=== PATIENT | male | born 1980 | race Caucasian/White ===

== ENCOUNTER 2022-04-04 14:14 | Emergency (ER) | payer OTHER, SELFPAY ==
[2022-04-04 14:17] VITALS: BP 170/112; PULSE 97; RESP 16; TEMP 36.3; O2SAT 97; BMI 25.1
--- NOTE | 2022-04-04 14:46 | ED.GENADULT ---
HPI - General Adult General Date Seen: 04/04/22 Chief complaint: Laceration/Wound Stated complaint: Lac right hand Time Seen by Provider: 04/04/22 14:28 Source: patient Mode of arrival: ambulatory Limitations: no limitations History of Present Illness HPI narrative: Patient is a 42-year-old male who was at work and cut his right index finger on a metal electrical box. Tetanus is up-to-date. He cut through the nail for the most part. No other injuries or complaints. No complaints of numbness or loss of function. Blood pressure is noted to be high here, he says he has run out of his medication and has not had a chance to make an appointment with Dr. Freddy jean. Takes lisinopril 10 mg. Related Data Previous Rx's Medication Instructions Recorded dextroamphetamine-amphetamine ER 20 mg PO QAM #30 caps 12/21/21 20 mg 24hr capsule,extend release (Adderall XR) lisinopril 10 mg tablet 10 mg PO DAILY #30 tabs 04/04/22 Allergies Allergy/AdvReac Type Severity Reaction Status Date / Time No Known Drug Allergies Allergy Verified 04/04/22 14:17 Exam Narrative: Exam Narrative: Vital signs reviewed, blood pressure elevated at 170/112. In general, an alert, well-appearing male. Extremities: Examination of the right hand shows a laceration which extends primarily into the nail, extends laterally past the cuticle by about half a cm. Bleeding is controlled. Distal CMS is normal. Remainder of the hand is atraumatic. Skin: Warm dry, well perfused. Otherwise intact. Const: Vital Signs, click to edit/add: Vital Signs - 24 hr 04/04/22 14:17 Temperature 97.4 F L Pulse Rate [Left P ulse Oximeter] 97 Respiratory Rate 16 Blood Pressure [Le ft Upper Arm] 170/112 H Pulse Oximetry 97 Oxygen Delivery Me thod Room Air Documenting provider has reviewed patient's vital signs: yes Course Course Hospital Course: I discussed options with him of removing the nail entirely and closing the laceration underneath it, applying glue to the nail and suturing just the skin, or applying glue to the entire laceration. He says he really does not like needles and he would like to avoid the midfoot at all possible. Discussed that if we do not repair the nail bed that there will potentially be a little more irregular of a scar there and the nail may grow somewhat irregularly over that spot, he is not concerned about that. Also discussed that it is going to take several months for the nail completely grow out and in the meantime he is going to lose 1 piece of it and then have an onlay shaped nail until the full nail grows out. That also is not a concern to him. Also discussed that glue tends not to stand hands very well, so we glued the portion of the laceration that extends onto the skin, it probably will not stay on for very long. That said, that is a very small laceration and I think if we just give it a couple of days where it is protected and that part of the cut has a chance to stabilize it should heal just fine. Therefore, the wound was cleaned a little bit and then I placed Dermabond over the entire laceration, including the nail and the skin. Then we placed 2 gauze as well as a splint which he leave in place for the next couple of days. Otherwise, routine wound care, return for signs of infection. A couple of days, he can remove the splint and dressing, he can use a Band-Aid for or can continue to keep the splint on it if he feels that that is better protection. In terms of his blood pressure, he understands that it is elevated here. I am going to give him a prescription for his lisinopril so he can get back on his medication, he will follow-up with Dr. Hayes. Vital Signs Vital signs: Initial Vital Signs Temperature 97.4 F L 04/04/22 14:17 Temperature Source Temporal Artery Scan 04/04/22 14:17 Pulse Rate 97 04/04/22 14:17 Pulse Rhythm 04/04/22 14:17 Respiratory Rate 16 04/04/22 14:17 Blood Pressure 170/112 H 04/04/22 14:17 Blood Pressure Mean 131 04/04/22 14:17 Blood Pressure Position Sitting 04/04/22 14:17 Pulse Oximetry 97 04/04/22 14:17 Oxygen Delivery Method 04/04/22 14:17 Vital Signs Temperature 97.4 F L 04/04/22 14:17 Pulse Rate 97 04/04/22 14:17 Respiratory Rate 16 04/04/22 14:17 Blood Pressure 170/112 H 04/04/22 14:17 Pulse Oximetry 97 04/04/22 14:17 Oxygen Delivery Method 04/04/22 14:17 Temperature 97.4 F L 04/04/22 14:17 Pulse Rate 97 04/04/22 14:17 Respiratory Rate 16 04/04/22 14:17 Blood Pressure 170/112 H 04/04/22 14:17 Pulse Oximetry 97 04/04/22 14:17 Oxygen Delivery Method 04/04/22 14:17 Discharge Plan Discharge Clinical Impression: Finger laceration, Hypertension Patient Disposition: Home, Self-Care Condition: Improved Instructions: Finger Laceration (ED), Skin Adhesive Care (ED) Additional Instructions: Routine wound care. It will take several months for your nail to completely grow out back to normal. Return for signs of infection. Skin glue will slough off over several days, it will take longer for it to come off of your nail, but I would recommend leaving it on the nail as long as possible. Prescriptions: New lisinopril 10 mg tablet 10 mg PO DAILY Qty: 30 0RF No Action dextroamphetamine-amphetamine [Adderall XR] 20 mg capsule,extended release 24hr 20 mg PO QAM Qty: 30 0RF Follow Up/Referrals: Urbano Hayes MD [Primary Care Provider] - Stand Alone Forms: [facility] Info Instructions
== END 2022-04-04 14:51 | disposition home or self-care (01) ==
LOC: ED 14:49
PROVIDERS: Emergency Provider Emergency Medicine; PCP Family Medicine
DX: S61.310A Laceration without foreign body of right index finger with damage to nail, initial encounter (principal); W26.8XXA Contact with other sharp object(s), not elsewhere classified, initial encounter; I10 Essential (primary) hypertension
CPT/HCPCS: 99283

== ENCOUNTER 2024-03-30 16:10 | Inpatient (IN) | payer BC, SELFPAY ==
--- OUTSIDE RECORDS SUMMARY | 2024-03-30 16:12 | XMS_ITS | Clinical Summary ---
Author Organization [facility] Address [address] [place] [id number] Care Team Providers Care Shoer Name Role Phone Urbano Hayes MD Primary Care Provider [phone] Allergies Active Allergy Reactions Criticality Noted Date Comments Venom-Honey Bee Edema 08/04/2013 Cats (Fur, Dander, Saliva) Runny Nose 4 Medications multivitamin (MVI) tablet Take 1 tablet by mouth once daily. 0 08/05/19 14 Active EPINEPHrine (EPIPEN) 0.3 mg/0.3 mL (1:1,000) injectionIndicati ons:Allergy to bee sting Inject 0.3 mg intramuscular one time if needed for Allergic Reaction for 1 dose. 1 Each 1 08/05/19 14 Active medical supply, miscellaneous (GRADUATED COMPRESSION STOCKINGS)Indicat ions:Venous insufficiency 20-30 mm/Hg thigh high compression stockings - Venous insufficiency 8 Packet 12/14/19 18 Active lisinopriL (PRINIVIL; ZESTRIL) 10 mg tablet Take 10 mg by mouth once daily. 03/25/19 21 Active Active Problems Problem Noted Date Diagnosed Date Venous insufficiency 12/13/2017 Immunizations Name Administration Dates Next Due Tdap 07/26/2009 Family History Medical History Relation Name Comments Good Health Father Asthma Mother Other Mother Chronic Fatigue Relation Name Status Comments Father Alive Mother Alive Social History Tobacco Use Types Packs/Day Years Used Date Smoking Tobacco: Never Smokeless Tobacco: Never Tobacco Cessation:Counseling Given: Yes Alcohol Use Standard Drinks/Week Comments Yes 0.8 (1 standard drink = 0.6 oz p ure alcohol) minimal Sex and Gender Information Value Date Recorded Sex Assigned at Not on file Legal Sex Male 7:58 AM RESIDENT CARE AIDE Gender Identity Not on file Sexual Orientation Not on file 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 Not on file Not on file Obstetrics History Last Filed Vital Signs Vital Sign Reading Time Taken Comments Blood Pressure 128/85 03/31/2020 9:20 AM RESIDENT CARE AIDE Pulse 69 03/31/2020 9:20 AM RESIDENT CARE AIDE Temperature 36.8 C (98.3 F) 03/01/2018 7:19 AM RESIDENT CARE AIDE Respiratory Rate 16 03/01/2018 9:15 AM RESIDENT CARE AIDE Oxygen Saturation 99% 03/31/2020 9:20 AM RESIDENT CARE AIDE Inhaled Oxygen Concentration - - Weight 128.5 kg (283 lb 3.2 oz) 03/31/2020 9:20 AM RESIDENT CARE AIDE Height 170.2 cm (5' 7) 03/01/2018 7:19 AM RESIDENT CARE AIDE Body Mass Index 44.36 03/01/2018 7:19 AM RESIDENT CARE AIDE Plan of Treatment Health Maintenance Due Date Last Done Comments Depression screening for age 12+ 1992 HIV for age 15-65 01/19/1995 Hepatitis C screening for ag e 18-79 01/19/1998 Lipids for age 35-44 01/19/2015 BMI (ht and wt on same day) for age 18+ 12/13/2018 12/13/2017, 06/21/2015 Tetanus booster 07/27/2019 07/26/2009 COVID-19 vaccine series (2023- season) 2023 Influenza for age 9-49 10/07/2023 Tdap Completed 07/26/2009 Pneumococcal series for age 6-49 Aged Out No longer eligible b ased on patient's age to complete this topic Insurance [facility] [id number] [id number] [facility] Advance Directives * Full Code (Latest Code Status on File) Date Activated Date Inactivated Comments 03/01/2018 6:37 AM 03/01/2018 11:43 AM * Full Code Date Activated Date Inactivated Comments 03/01/2018 6:37 AM 03/01/2018 6:37 AM Care Teams Shoer Relationship Specialty Start Date End Date Urbano Hayes MD [address] [id number] PCP - General 02/26/18
[2024-03-30 16:36] VITALS: BP 156/85; PULSE 105; RESP 20; TEMP 37.8; O2SAT 98; BMI 26.0
--- NOTE | 2024-03-30 16:41 | ED_ITS ---
HPI - General Adult General Date Seen: 03/30/24 Chief complaint: Abdominal Pain Stated complaint: left side pain, dull with sharp spikes Time Seen by Provider: 03/30/24 16:39 History of Present Illness HPI narrative: This is a pleasant generally healthy 44-year-old male (has a history of high blood pressure but is currently well controlled with diet and exercise, not on any meds) presenting to the ER today with abdominal pain, nausea, low-grade fevers. Symptoms started yesterday morning with some bilateral crampy intermittent, colicky abdominal pain. It has been coming and going since then but today has been much more prominent on the left side of the abdomen than on the right. Overnight he developed some fever and chills and sweatiness. He did not measure his actual temperature number. He was nauseous but not vomiting. Bowel movements have been normal. Urination has been normal. He has no history of similar symptoms. No history of kidney stones. No history of any GI surgeries. No known sick contacts. No diarrhea. Related Data Home Medications ?Medication ?Instructions ?Recorded ?Confirmed No Known Home Medications 03/30/24 03/30/24 Allergies Allergy/AdvReac Type Severity Reaction Status Date / Time bees Allergy Uncoded 03/08/23 17:51 cats Allergy Uncoded 03/08/23 17:51 PFSH PFS Social History Smoking Status: Never smoker Do you use any of these nicotine containing products: None Second hand tobacco smoke exposure: No How often do you have a drink containing alcohol: never AUDIT-C Alcohol total score: 0 Non-prescribed substance use: denies use service: No Exam Narrative: Exam Narrative: Constitutional: Appears well-developed and well-nourished. Alert. Conversant. N on toxic. HENT: Head: Atraumatic. Nose: Nose normal. Mouth/Throat: Oral mucosa is clear and moist. no trismus. Pharynx normal. Eyes: Conjunctivae normal. EOM normal. Pupils equal, round, and reactive to light. No scleral icterus. Neck: Normal range of motion. Neck supple. No tracheal deviation present. Cardiovascular: Normal rate, regular rhythm. No gallop. No friction rub. No murmur heard. Symmetric radial artery pulses Pulmonary/Chest: Effort normal. No stridor. No respiratory distress. No wheezes. No rales. No rhonchi . No tenderness. Abdominal: Soft. Bowel sounds normal. No distension. No mass. Marked left upper quad tenderness> left lower quadrant. No CVA tenderness. Mild right lower quadrant tenderness No rebound. Some left upper quad guarding. Musculoskeletal: RUE: Normal range of motion. No tenderness. No deformity LUE: Normal range of motion. No tenderness. No deformity RLE: Normal range of motion. No edema. No tenderness. No deformity LLE: Normal range of motion. No edema. No tenderness. No deformity Neurological: Alert and oriented to person, place, and time. Normal strength. CN II-VII intact. No sensory deficit. GCS eye subscore is 4. GCS verbal subscore is 5. GCS motor subscore is 6. Normal coordination Skin: Skin is warm and dry. No rash noted. No pallor. Normal capillary refill. Psychiatric: Normal mood. Normal affect. Const: Vital Signs, click to edit/add: Vital Signs - 24 hr 03/30/24 16:36 Temperature 100.1 F H Pulse Rate [Right Pulse Oximeter] 105 H Respiratory Rate 20 Blood Pressure [Ri ght Upper Arm] 156/85 H Pulse Oximetry 98 Oxygen Delivery Me thod Room Air Course Vital Signs Vital signs: Initial Vital Signs Temperature 100.1 F H 03/30/24 16:36 Temperature Source Temporal Artery Scan 03/30/24 16:36 Pulse Rate 105 H 03/30/24 16:36 Respiratory Rate 03/30/24 16:36 Blood Pressure 156/85 H 03/30/24 16:36 Blood Pressure Mean 108 H 03/30/24 16:36 Blood Pressure Position Sitting 03/30/24 16:36 Pulse Oximetry 98 03/30/24 16:36 Oxygen Delivery Method Room Air 03/30/24 16:36 Vital Signs Temperature 100.1 F H 03/30/24 16:36 Pulse Rate 105 H 03/30/24 16:36 Respiratory Rate 20 03/30/24 16:36 Blood Pressure 156/85 H 03/30/24 16:36 Pulse Oximetry 98 03/30/24 16:36 Oxygen Delivery Method Room Air 03/30/24 16:36 Temperature 100.1 F H 03/30/24 16:36 Pulse Rate 105 H 03/30/24 16:36 Respiratory Rate 20 03/30/24 16:36 Blood Pressure 156/85 H 03/30/24 16:36 Pulse Oximetry 98 03/30/24 16:36 Oxygen Delivery Method Room Air 03/30/24 16:36 Medical Decision Making MDM Narrative Medical decision making narrative: Very pleasant generally healthy 44-year-old gentleman presenting the to the ER today with abdominal pain, predominantly in this left upper quadrant. Symptoms again yesterday with more bilateral pain but of localized more more to the left overnight and today. Differential here is broad including kidney stone, pyelonephritis, diverticulitis, colitis, pancreatitis, atypical presentation of appendicitis, among others. Urinalysis is normal. Laboratory workup shows a white count of [address] scan shows evidence for acute diverticulitis affecting the descending colon as well as a small perforation without free air or abscess. He is mildly febrile and has sinus tachycardia with heart rate of 105 but otherwise stable vitals, mentating normally, and is not shocky. No evidence for sepsis. Discussed with surgery, Dr. Castro. She had recommends admission for IV antibiotics but no need for immediate surgical intervention. Discussed with hospitalist, Dr. Le, who accepts for admission. Dr. Le request that we start IV Invanz. Fluids and Invanz ordered here in the ER. Discussed with the patient and he is in agreement. Lab Data Labs: Lab Results 03/30/24 03/30/24 Range/Units 16:52 16:55 WBC 13.16 H (4.50-11.00) K/uL RBC 5.00 (4.30-5.90) m/uL Hgb 14.1 (13.5-17.5) gm/dL Hct 42.8 (37.0-53.0) % MCV 86 (80-100) fL MCH 28 (26-34) pg MCHC 33 (32-36) gm/dL RDW Coeff of Tom 12.8 (11.5-15.5) % Plt Count 303 (140-440) K/uL Neut % (Auto) 69.4 (42.0-72.0) % Lymph % (Auto) 18.0 L (20-44) % [place] % (Auto) 10.6 (0.0-11.0) % Eos % (Auto) 1.0 (0.0-7.0) % Baso % (Auto) 0.2 (0.0-3.0) % Neut # (Auto) 9.10 H (1.7-7.0) K/uL Lymph # (Auto) 2.40 (0.90-2.90) K/uL [place] # (Auto) 1.40 H (0.00-0.90) K/UL Eos # (Auto) 0.10 (0.00-0.50) K/uL Baso # (Auto) 0.00 (0.00-0.30) K/uL Abs Immat Gran (auto) 0.10 (0.00-0.30) K/uL Imm/Tot Granulo (auto) 0.8 % Sodium 136 (135-149) mmol/L Potassium 4.0 (3.6-5.1) mmol/L Chloride 98 (96-114) mmol/L Carbon Dioxide 28 (20-32) mmol/L Anion Gap 10 (7-15) mEq/L BUN 17 (5-24) mg/dL Creatinine 1.2 (0.5-1.5) mg/dL Estimated Creat Clear 73.44 Estimated GFR 76 ml/min Glucose 114 (60-115) mg/dL Calcium 8.9 (8.4-10.6) mg/dL Lipase 72 (23-300) U/L Urine Color Yellow (Yellow) Urine Appearance Clear (Clear) Urine pH 6.0 (5.0-8.5) Ur Specific [place] 1.015 (1.000-1.030) Urine Protein Negative (Negative) Urine Glucose (UA) Negative (Negative) Urine Ketones Negative (Negative) Urine Blood Trace-intact A (Negative) Urine Nitrite Negative (Negative) Urine Bilirubin Negative (Negative) Urine Urobilinogen 0.2 (0.2-1.0) Ur Leukocyte Esterase Negative (Negative) Urine RBC 0-2 (0-2) Urine WBC 0-2 (0-5) Ur Squamous Epith Cells None (None-Few) Urine Bacteria None (None) Imaging Data CT scan - abdomen: Attestation: I have reviewed the pertinent imaging results. Radiologist's impression: IMPRESSION: Acute descending sigmoid diverticulitis with tiny localized perforation. Otherwise, no complicating features, including free intraperitoneal air or drainable fluid collections. No obstructive uropathy. Mildly distended bladder with circumferential wall thickening. Recommend correlation with urinalysis if UTI is suspected. Discharge Plan Discharge Clinical Impression: Diverticulitis, Perforation bowel Patient Disposition: Admitted As Observation
--- NOTE | 2024-03-30 16:41 | CRLHL7_ITS ---
For Patients: As a result of the Century Cures Act, medical imaging exams and procedure reports are released immediately into your electronic medical record. You may view this report before your referring provider. If you have questions, please contact your health care provider. INDICATION: Left flank pain. TECHNIQUE: CT abdomen and pelvis without contrast. COMPARISON: None. FINDINGS: Lower chest: Scattered atelectasis. Punctate left lower lobe pulmonary nodule. Tiny hiatal hernia. Liver: Normal in size and attenuation. No suspicious masses. Gallbladder and bile ducts: No stones or inflammation. No biliary dilatation. Pancreas: Unremarkable. No mass or inflammation. Spleen: Normal in size. No masses. Adrenal glands: Normal in size. No nodules. Kidneys: Normal in size. No suspicious masses, stones, or hydronephrosis. GI tract: Moderate colonic stool burden. Colonic diverticulosis. Focal acute descending colonic diverticulitis. Possible tiny localized perforation (series 2/image 79). No bowel obstruction. Normal appendix. Vasculature: Abdominal aorta is normal in caliber. Lymph nodes: No lymphadenopathy. Peritoneum/Abdominal Wall: Unremarkable. No sign of mass or infiltration. No free air or significant free fluid. Pelvis: Mildly distended bladder with circumferential wall thickening. Recommend correlation with urinalysis if UTI is suspected. No pelvic masses. Bones: Unremarkable for age. IMPRESSION: Acute descending sigmoid diverticulitis with tiny localized perforation. Otherwise, no complicating features, including free intraperitoneal air or drainable fluid collections. No obstructive uropathy. Mildly distended bladder with circumferential wall thickening. Recommend correlation with urinalysis if UTI is suspected. Please note that all CT scans at this facility use dose modulation, iterative reconstruction, and/or weight-based dosing when appropriate to reduce radiation dose to as low as reasonably achievable. Dictated by Kam Page MD @ 03/30/2024 5:44:39 PM (Electronically Signed)
[2024-03-30 16:58] LABS: Basophils Percent Auto 0.2 % (0.0-3.0); Hematocrit 42.8 % (37.0-53.0); Hemoglobin* 14.1 gm/dL (13.5-17.5); Immature Granulocytes Pct Auto 0.8 %; Mean Corpuscular HGB Conc 33 gm/dL (32-36); Mean Corpuscular Hemoglobin 28 pg (26-34); Mean Corpuscular Volume 86 fL (80-100); Monocytes Percent Auto 10.6 % (0.0-11.0); Neutrophils Percent Auto 69.4 % (42.0-72.0); Platelet Count* 303 K/uL (140-440); RDW Coefficient of Variation % 12.8 % (11.5-15.5); White Blood Count* 13.16 K/uL (4.50-11.00)
--- OUTSIDE RECORDS SUMMARY | 2024-03-30 16:58 | XMS_ITS | Clinical Summary ---
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 on file Not on file Obstetrics History Last Filed Vital Signs Vital Sign Reading Time Taken Comments Blood Pressure 128/85 03/31/2020 9:20 AM AIRCRAFT MAINTENANCE ENGINEER Pulse 69 03/31/2020 9:20 AM AIRCRAFT MAINTENANCE ENGINEER Temperature 36.8 C (98.3 F) 03/01/2018 7:19 AM AIRCRAFT MAINTENANCE ENGINEER Respiratory Rate 16 03/01/2018 9:15 AM AIRCRAFT MAINTENANCE ENGINEER Oxygen Saturation 99% 03/31/2020 9:20 AM AIRCRAFT MAINTENANCE ENGINEER Inhaled Oxygen Concentration - - Weight 128.5 kg (283 lb 3.2 oz) 03/31/2020 9:20 AM AIRCRAFT MAINTENANCE ENGINEER Height 170.2 cm (5' 7) 03/01/2018 7:19 AM AIRCRAFT MAINTENANCE ENGINEER Body Mass Index 44.36 03/01/2018 7:19 AM AIRCRAFT MAINTENANCE ENGINEER Plan of Treatment Health Maintenance Due Date [...] patient's age to complete this topic Insurance [facility] [id number] [id number] [facility] Advance Directives * Full Code (Latest Code Status on File) Date Activated Date Inactivated Comments 03/01/2018 6:37 AM 03/01/2018 11:43 AM * Full Code Date Activated Date Inactivated Comments 03/01/2018 6:37 AM 03/01/2018 6:37 AM Care Teams Stock Worker Relationship Specialty Start Date End Date Urbano Hayes MD [address] [id number] PCP - General 02/26/18
[2024-03-30 16:59] LABS: Slide Review Reflex No
[2024-03-30 17:03] LABS: Appearance Urine Clear (Clear); Bilirubin Urine Negative (Negative); Blood Urine Trace-intact (Negative); Color Urine Yellow (Yellow); Glucose Urine Negative (Negative); Ketones Urine Negative (Negative); Leukocyte Esterase Urine Negative (Negative); Nitrite Urine Negative (Negative); Protein Urine Negative (Negative); Specific Gravity Urine 1.015 (1.000-1.030); Urobilinogen Urine 0.2 (0.2-1.0)
[2024-03-30 17:14] LABS: Chloride* 98 mmol/L (96-114); Sodium* 136 mmol/L (135-149)
[2024-03-30 17:16] LABS: RBC Urine 0-2 (0-2); WBC Urine 0-2 (0-5)
[2024-03-30 17:17] LABS: Anion Gap 10 mEq/L (7-15); Carbon Dioxide* 28 mmol/L (20-32); Creatinine* 1.2 mg/dL (0.5-1.5); Est. Creatinine Clearance* 73.44; Estimated Glomerular Filt Rate 76 ml/min
[2024-03-30 17:18] LABS: Blood Urea Nitrogen* 17 mg/dL (5-24); Calcium* 8.9 mg/dL (8.4-10.6); Glucose* 114 mg/dL (60-115); Lipase* 72 U/L (23-300)
[2024-03-30] MEDS: ERTAPENEM 1 GM in 0.9 % SODIUM CHLORIDE Mini-bag 100 ML IVPB (19:00)
[2024-03-30] MEDS: 0.9 % SODIUM CHLORIDE 1000 ml 1,000 ML IV (19:01)
[2024-03-30 19:02] VITALS: BP 147/106; PULSE 105; RESP 16; O2SAT 97
[2024-03-30 19:28] VITALS: BP 156/103; PULSE 101; RESP 16; TEMP 37.6; O2SAT 97; BMI 26.1
--- NOTE | 2024-03-30 19:37 | P.IMHP_ITS ---
Hospitalist- H&P: HPI History of Present Illness Date Seen: 03/30/24 Chief complaint: left side pain, dull with sharp spikes Narrative: Cale Mendez is a 44 year old previously healthy male presents with a 1 day history of abdominal pain. He reported bilateral abdominal pain yesterday but it migrated to the left and has persisted on the left side of his abdomen as a constant dull aching pain with episodes of sharp pain that come randomly or with movement. He had fever chills last night and documented fever in the emergency department today. He has had no nausea or vomiting. He was able to eat today. He has had no urinary symptoms. He had a normal bowel movement this morning. He reports no previous history of abdominal problems, gastrointestinal problems or bowel problems. No family history of bowel problems or diverticulitis or colon polyps or colon cancer. He has not previously had colonoscopy. Review of Systems Narrative: He reports feeling well prior to the onset of pain yesterday [facility] Medical History (Updated 03/30/24 @ 19:45 by Karsten Le MD) Hypertension ?I10 - Essential (primary) hypertension (ICD-10) Diverticulitis of colon with perforation ?K57.20 - Diverticulitis of large intestine with perforation and abscess without bleeding (ICD-10) ADHD ?F90.9 - Attention-deficit hyperactivity disorder, unspecified type (ICD-10) Social History (Updated 03/30/24 @ 19:43 by Karsten Le MD) Narrative: He lives in [place] with his and 7 children ages 2 months to 21 years. 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 Code status is full. He does not smoke. He rarely drinks alcohol. Smoking Status: Never smoker Do you use any of these nicotine containing products: None Second hand tobacco smoke exposure: No How often do you have a drink containing alcohol: never AUDIT-C Alcohol total score: 0 Non-prescribed substance use: denies use service: No Meds Home Medications and Allergies Home Medications ?Medication ?Instructions ?Recorded ?Confirmed ?Type No Known Home Medications 03/30/24 03/30/24 History Allergies Allergy/AdvReac Type Severity Reaction Status Date / Time bees Allergy Uncoded 03/08/23 17:51 cats Allergy Uncoded 03/08/23 17:51 Exam Narrative: Exam Narrative: He is alert and appears in no distress. He is oriented to his circumstances and gives his own history. Eyes normal. Oropharynx normal. Neck is supple without mass or adenopathy. Respirations are clear to auscultation. Cardiovascular: S1, S2, regular rate and rhythm. Abdomen: Bowel sounds are present. Abdomen is soft with mild to moderate left-sided tenderness. No peritonitis. No mass. External genitalia normal. Extremities with intact strength, motion, sensation, pulses. Good capillary refill. No rash. Const: Vital Signs, click to edit/add: Vital Signs - 24 hr 03/30/24 16:36 03/30/24 19:02 Temperature 100.1 F H Pulse Rate [Right Pulse Oximeter] 105 H 105 H Respiratory Rate 20 16 Blood Pressure [Ri ght Upper Arm] 156/85 H 147/106 H Pulse Oximetry 98 97 Oxygen Delivery Me thod Room Air Room Air Documenting provider has reviewed patient's vital signs: yes Hospitalist - H&P: Result Labs Labs: Short CBC 03/30/24 Range/Units 16:52 WBC 13.16 H (4.50-11.00) K/uL Hgb 14.1 (13.5-17.5) gm/dL Hct 42.8 (37.0-53.0) % Plt Count 303 (140-440) K/uL BMP 03/30/24 16:52 Sodium 136 Potassium 4.0 Chloride 98 Carbon Dioxide 28 BUN 17 Creatinine 1.2 Glucose 114 Calcium 8.9 Urine 03/30/24 Range/Units 16:55 Urine Color Yellow (Yellow) Urine Appearance Clear (Clear) Urine pH 6.0 (5.0-8.5) Ur Specific [place] 1.015 (1.000-1.030) Urine Protein Negative (Negative) Urine Glucose (UA) Negative (Negative) Imaging CT scan - abdomen: Radiologist's impression: INDICATION: Left flank pain. TECHNIQUE: CT abdomen and pelvis without contrast. COMPARISON: None. FINDINGS: Lower chest: Scattered atelectasis. Punctate left lower lobe pulmonary nodule. Tiny hiatal hernia. Liver: Normal in size and attenuation. No suspicious masses. Gallbladder and bile ducts: No stones or inflammation. No biliary dilatation. Pancreas: Unremarkable. No mass or inflammation. Spleen: Normal in size. No masses. Adrenal glands: Normal in size. No nodules. Kidneys: Normal in size. No suspicious masses, stones, or hydronephrosis. GI tract: Moderate colonic stool burden. Colonic diverticulosis. Focal acute descending colonic diverticulitis. Possible tiny localized perforation (series 2/image 79). No bowel obstruction. Normal appendix. Vasculature: Abdominal aorta is normal in caliber. Lymph nodes: No lymphadenopathy. Peritoneum/Abdominal Wall: Unremarkable. No sign of mass or infiltration. No free air or significant free fluid. Pelvis: Mildly distended bladder with circumferential wall thickening. Recommend correlation with urinalysis if UTI is suspected. No pelvic masses. Bones: Unremarkable for age. IMPRESSION: Acute descending sigmoid diverticulitis with tiny localized perforation. Otherwise, no complicating features, including free intraperitoneal air or drainable fluid collections. No obstructive uropathy. Mildly distended bladder with circumferential wall thickening. Recommend correlation with urinalysis if UTI is suspected. Assessment and Plan Assessment and plan (1) Diverticulitis of colon with perforation: Status: Acute Plan 44-year-old male admitted to the hospital with diverticulitis with perforation. Will admit for IV antibiotics and surgical consultation. Plan of care as reviewed with patient. Total Time Spent Total Time Spent: Total time spent today is 55 minutes in reviewing past records, coordination of care and discussing ongoing evaluation management of diverticulitis with perforation and expected outcomes and possible complications.
[2024-03-30 22:45] VITALS: BP 133/83; PULSE 106; RESP 16; TEMP 37.5; O2SAT 93
[2024-03-30] MEDS: SODIUM CHLORIDE 0.9 % (FLUSH) 10 ML SYRINGE 5 ML IVF (22:48)
[2024-03-31] VITALS (7 sets, daily range): BP systolic 132–148; BP diastolic 90–116; PULSE 75–98; RESP 14–18; TEMP 36.7–37; O2SAT 95–97
[2024-03-31] MEDS: ACETAMINOPHEN 325 MG TABLET 650 MG PO (03:34)
[2024-03-31 06:38] LABS: Basophils Percent Auto 0.2 % (0.0-3.0); Eosinophils Percent Auto 1.4 % (0.0-7.0); Hematocrit 41.2 % (37.0-53.0); Hemoglobin* 13.4 gm/dL (13.5-17.5); Immature Granulocytes Pct Auto 0.2 %; Lymphocytes Percent Auto 16.1 % (20-44); Mean Corpuscular HGB Conc 33 gm/dL (32-36); Mean Corpuscular Hemoglobin 28 pg (26-34); Mean Corpuscular Volume 87 fL (80-100); Monocytes Percent Auto 10.6 % (0.0-11.0); Neutrophils Percent Auto 71.5 % (42.0-72.0); Platelet Count* 283 K/uL (140-440); RDW Coefficient of Variation % 12.8 % (11.5-15.5); Red Blood Count 4.73 m/uL (4.30-5.90)
[2024-03-31 06:51] LABS: Slide Review Reflex No
--- NOTE | 2024-03-31 07:14 | P.GSCN_ITS ---
History of Present Illness Consult details Date Seen: 03/31/24 Consult date: 03/31/24 Narrative: The patient is a 44-year-old male who presented to the emergency department yesterday with left-sided abdominal pain. He states the pain initially began 2 days ago and was present on both sides of his abdomen. Yesterday it moved to the left. He has never had pain like this before. He did have nausea when the pain came on. The pain persisted and his significant other told him that he should come in to be evaluated. He states that he has normal bowel movements daily. Denies a history of constipation or straining. He did have a normal bowel movement since the pain has done. Today his pain has improved. He has no family history of colon cancer. He has never had a colonoscopy. [facility] Medical History (Updated 03/31/24 @ 11:06 by Lonnie Hernandez MD) Hypertension ?I10 - Essential (primary) hypertension (ICD-10) Diverticulitis of colon with perforation ?K57.20 - Diverticulitis of large intestine with perforation and abscess without bleeding (ICD-10) ADHD ?F90.9 - Attention-deficit hyperactivity disorder, unspecified type (ICD-10) Social History (Updated 03/30/24 @ 19:43 by Karsten Le MD) Narrative: He lives in [place] with his and 7 children ages 2 months to 21 years. 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 Code status is full. He does not smoke. He rarely drinks alcohol. What is your current living situation?: I presently have a place to live Problems where you live: no known problems Problems where you live details: no known problems In the past 12 months, utilities in danger of being shut off: no In past 12 months, lack of transportation kept you from medical appts, meetings, work, or getting things needed for daily living: no In the past 12 mos, have been you worried that your food would run out before you had money to buy more?: never true In the past 12 mos, the food you bought just didn't last and you didn't have money to buy more?: never true Smoking Status: Never smoker Do you use any of these nicotine containing products: None Second hand tobacco smoke exposure: No How often do you have a drink containing alcohol: never How often do you have six or more drinks on one occasion: Never AUDIT-C Alcohol total score: 0 Non-prescribed substance use: denies use How often does anyone, including family, friends and others, physically hurt you : never How often does anyone, including family, friends and others, insult or talk down to you: never How often does anyone, including family, friends and others, threaten you with harm: never How often does anyone, including family, friends and others, scream or curse at you: never service: No Meds Home Medications and Allergies Home Medications ?Medication ?Instructions ?Recorded ?Confirmed ?Type No Known Home Medications 03/30/24 03/30/24 History Allergies Allergy/AdvReac Type Severity Reaction Status Date / Time bees Allergy Uncoded 03/08/23 17:51 cats Allergy Uncoded 03/08/23 17:51 Exam Narrative: Exam Narrative: General appearance: Alert, cooperative, and in no distress Eyes: PERRLA, eye lids clear, and sclera white HENT Head: Normocephalic Ears: External ears normal Pulmonary: Breathing nonlabored on room air Cardiovascular Heart: Regular rate Extremities: warm and well perfused Gastrointestinal Abdominal: Abdomen is soft. Minimally tender in the right abdomen. Musculoskeletal: Extremities: Upper: Both upper extremities have normal joint range of motion and intact strength. Lower: Both lower extremities have normal joint range of motion and intact strength. Skin: Normal skin color, texture, and turgor. Neurologic: No focal deficits Psychiatric: Alert, oriented, cooperative, normal affect. Const: Vital Signs, click to edit/add: Vital Signs - 24 hr 03/30/24 16:36 03/30/24 19:02 03/30/24 19:28 Temperature 100.1 F H 99.6 F Pulse Rate [Pulse Oximeter] 101 H Pulse Rate [Right Pulse Oximeter] 105 H 105 H Respiratory Rate 20 16 16 Blood Pressure [Le ft Arm] 156/103 H Blood Pressure [Ri ght Upper Arm] 156/85 H 147/106 H Pulse Oximetry 98 97 97 Oxygen Delivery Me thod Room Air Room Air Room Air 03/30/24 19:28 03/30/24 22:45 03/30/24 22:45 Temperature 99.5 F Pulse Rate [Pulse Oximeter] 106 H 106 H Pulse Rate [Right Pulse Oximeter] Respiratory Rate 16 16 Blood Pressure [Le ft Arm] 133/83 Blood Pressure [Ri ght Upper Arm] Pulse Oximetry 93 Oxygen Delivery Me thod Room Air Room Air 03/31/24 03:35 Temperature 98.4 F Pulse Rate [Pulse Oximeter] 81 Pulse Rate [Right Pulse Oximeter] Respiratory Rate 16 Blood Pressure [Le ft Arm] 137/97 H Blood Pressure [Ri ght Upper Arm] Pulse Oximetry 97 Oxygen Delivery Me thod Room Air Results Labs Labs: Abnormal lab results 03/30/24 03/30/24 03/31/24 Range/Units 16:52 16:55 05:40 WBC 13.16 H 12.50 H (4.50-11.00) K/uL Hgb 13.4 L (13.5-17.5) gm/dL Lymph % (Auto) 18.0 L 16.1 L (20-44) % Neut # (Auto) 9.10 H 8.90 H (1.7-7.0) K/uL [place] # (Auto) 1.40 H 1.30 H (0.00-0.90) K/UL Urine Blood Trace-intact A (Negative) Diabetes panel 03/30/24 Range/Units 16:52 Sodium 136 (135-149) mmol/L Potassium 4.0 (3.6-5.1) mmol/L Chloride 98 (96-114) mmol/L Carbon Dioxide 28 (20-32) mmol/L BUN 17 (5-24) mg/dL Creatinine 1.2 (0.5-1.5) mg/dL Glucose 114 (60-115) mg/dL Calcium 8.9 (8.4-10.6) mg/dL Calcium panel 03/30/24 Range/Units 16:52 Calcium 8.9 (8.4-10.6) mg/dL Pituitary panel 03/30/24 Range/Units 16:52 Sodium 136 (135-149) mmol/L Potassium 4.0 (3.6-5.1) mmol/L Chloride 98 (96-114) mmol/L Carbon Dioxide 28 (20-32) mmol/L BUN 17 (5-24) mg/dL Creatinine 1.2 (0.5-1.5) mg/dL Glucose 114 (60-115) mg/dL Calcium 8.9 (8.4-10.6) mg/dL Adrenal panel 03/30/24 Range/Units 16:52 Sodium 136 (135-149) mmol/L Potassium 4.0 (3.6-5.1) mmol/L Chloride 98 (96-114) mmol/L Carbon Dioxide 28 (20-32) mmol/L BUN 17 (5-24) mg/dL Creatinine 1.2 (0.5-1.5) mg/dL Glucose 114 (60-115) mg/dL Calcium 8.9 (8.4-10.6) mg/dL All other labs normal. Imaging Abdomen CT scan report/results: report reviewed and image reviewed Additional studies: CT abdomen/Pelvis without contrast IMPRESSION: Acute descending sigmoid diverticulitis with tiny localized perforation. Otherwise, no complicating features, including free intraperitoneal air or drainable fluid collections. No obstructive uropathy. Mildly distended bladder with circumferential wall thickening. Recommend correlation with urinalysis if UTI is suspected. Dictated by Kam Page MD @ 03/30/2024 5:44:39 PM Progress Note:A&P Assessment and plan (1) Diverticulitis of colon with perforation: Status: Acute Plan The patient is a 44 year-old male with diverticulitis with micro perforation. I discussed diverticulitis with the patient including causes symptoms and indications for surgery. I think that given his overall clinical picture the fact that he is improved today, I recommend an additional day of IV antibiotics. Will follow white blood cell count. May be okay to discharge home tomorrow on outpatient antibiotics. Recommend clear liquid diet for now. -would recommend colonoscopy in 6 weeks after resolution of symptoms.
[2024-03-31] MEDS: SODIUM CHLORIDE 0.9 % (FLUSH) 10 ML SYRINGE 5 ML IVF ×2 (08:33→20:08)
--- NOTE | 2024-03-31 11:00 | PM.IMPN1 ---
Progress Note: A&P Assessment and plan (1) Diverticulitis of colon with perforation: Problem details: - CT scan of abdomen and pelvis on 03/30/2024: FINDINGS: Lower chest: Scattered atelectasis. Punctate left lower lobe pulmonary nodule. Tiny hiatal hernia. Liver: Normal in size and attenuation. No suspicious masses. Gallbladder and bile ducts: No stones or inflammation. No biliary dilatation. Pancreas: Unremarkable. No mass or inflammation. Spleen: Normal in size. No masses. Adrenal glands: Normal in size. No nodules. Kidneys: Normal in size. No suspicious masses, stones, or hydronephrosis. GI tract: Moderate colonic stool burden. Colonic diverticulosis. Focal acute descending colonic diverticulitis. Possible tiny localized perforation (series 2/image 79). No bowel obstruction. Normal appendix. Vasculature: Abdominal aorta is normal in caliber. Lymph nodes: No lymphadenopathy. Peritoneum/Abdominal Wall: Unremarkable. No sign of mass or infiltration. No free air or significant free fluid. Pelvis: Mildly distended bladder with circumferential wall thickening. Recommend correlation with urinalysis if UTI is suspected. No pelvic masses. Bones: Unremarkable for age. IMPRESSION: Acute descending sigmoid diverticulitis with tiny localized perforation. Otherwise, no complicating features, including free intraperitoneal air or drainable fluid collections. No obstructive uropathy. Mildly distended bladder with circumferential wall thickening. Recommend correlation with urinalysis if UTI is suspected. -continue with ertapenem 1 g IV Q 24 hours, clear liquids orally at this time only with other symptom management -await general surgery consultation Status: Acute Plan 1. Reviewed impression and plan with patient and 2. Answered their questions 3. Reviewed pathophysiology of diverticulosis, diverticulitis, perforation 4. Anticipate patient will need IV antibiotics for minimum of 10 days total 5. Will need outpatient colonoscopy in the near future, 6-10 weeks from now Time Spent With Patient Total time spent: 45 minutes Subjective Date Seen: 03/31/24 Interval history: Admission history of present illness: ?44 year old previously healthy male presents with a 1 day history of abdominal pain. He reported bilateral abdominal pain yesterday but it migrated to the left and has persisted on the left side of his abdomen as a constant dull aching pain with episodes of sharp pain that come randomly or with movement. He had fever chills last night and documented fever in the emergency department today. He has had no nausea or vomiting. He was able to eat today. He has had no urinary symptoms. He had a normal bowel movement this morning. He reports no previous history of abdominal problems, gastrointestinal problems or bowel problems. No family history of bowel problems or diverticulitis or colon polyps or colon cancer. He has not previously had colonoscopy.? 03/31/2024: Hospital day 2. Abdominal pain is less intense and less persistent today than yesterday. States if he lays still and does not move he feels no pain now were as yesterday he had pain even as such. Any movement will elicit his discomfort. Palpation over the left lower quadrant of the abdomen will also elicit the discomfort. Denies nausea or vomiting. Tolerating clear liquids. Exam Narrative: Exam Narrative: Examined patient in his hospital room. Appears comfortable in no acute distress lying in his hospital bed. Alert and oriented x4. Friendly and cooperative. Vision and hearing are adequate. Lungs are clear to auscultation without wheezing, rhonchi, rales. Heart tones with regular rhythm, normal S1-S2, without murmur, gallop, or rub. Abdomen with active bowel sounds, soft. Subjective discomfort to palpation over the left lower quadrant of the abdomen only. No rebound or guarding. Independent in transfer, station, and gait. No focal motor neurologic deficits. Skin warm, dry, intact. Const: Vital Signs, click to edit/add: Vital Signs - 24 hr 03/30/24 16:36 03/30/24 19:02 03/30/24 19:28 Temperature 100.1 F H 99.6 F Pulse Rate [Pulse Oximeter] 101 H Pulse Rate [Right Pulse Oximeter] 105 H 105 H Respiratory Rate 20 16 16 Blood Pressure [Le ft Arm] 156/103 H Blood Pressure [Ri ght Upper Arm] 156/85 H 147/106 H Pulse Oximetry 98 97 97 Oxygen Delivery Me thod Room Air Room Air Room Air 03/30/24 19:28 03/30/24 22:45 03/30/24 22:45 Temperature 99.5 F Pulse Rate [Pulse Oximeter] 106 H 106 H Pulse Rate [Right Pulse Oximeter] Respiratory Rate 16 16 Blood Pressure [Le ft Arm] 133/83 Blood Pressure [Ri ght Upper Arm] Pulse Oximetry 93 Oxygen Delivery Me thod Room Air Room Air 03/31/24 03:35 03/31/24 08:15 03/31/24 08:15 Temperature 98.4 F 98.1 F Pulse Rate [Pulse Oximeter] 81 78 78 Pulse Rate [Right Pulse Oximeter] Respiratory Rate 16 18 18 Blood Pressure [Le ft Arm] 137/97 H 142/98 H Blood Pressure [Ri ght Upper Arm] Pulse Oximetry 97 95 Oxygen Delivery Me thod Room Air Room Air 03/31/24 08:33 Temperature 98.1 F Pulse Rate [Pulse Oximeter] Pulse Rate [Right Pulse Oximeter] Respiratory Rate Blood Pressure [Le ft Arm] Blood Pressure [Ri ght Upper Arm] Pulse Oximetry Oxygen Delivery Me thod Labs Labs: Laboratory Results - last 24 hr 03/30/24 03/30/24 03/31/24 16:52 16:55 05:40 WBC 13.16 H 12.50 H RBC 5.00 4.73 Hgb 14.1 13.4 L Hct 42.8 41.2 MCV 86 87 MCH 28 28 MCHC 33 33 RDW Coeff of Tom 12.8 12.8 Plt Count 303 283 Neut % (Auto) 69.4 71.5 Lymph % (Auto) 18.0 L 16.1 L [place] % (Auto) 10.6 10.6 Eos % (Auto) 1.0 1.4 Baso % (Auto) 0.2 0.2 Neut # (Auto) 9.10 H 8.90 H Lymph # (Auto) 2.40 2.00 [place] # (Auto) 1.40 H 1.30 H Eos # (Auto) 0.10 0.20 Baso # (Auto) 0.00 0.00 Abs Immat Gran (auto) 0.10 0.00 Imm/Tot Granulo (auto) 0.8 0.2 Sodium 136 Potassium 4.0 Chloride 98 Carbon Dioxide 28 Anion Gap 10 BUN 17 Creatinine 1.2 Estimated Creat Clear 73.44 Estimated GFR 76 Glucose 114 Calcium 8.9 Lipase 72 Urine Color Yellow Urine Appearance Clear Urine pH 6.0 Ur Specific [place] 1.015 Urine Protein Negative Urine Glucose (UA) Negative Urine Ketones Negative Urine Blood Trace-intact A Urine Nitrite Negative Urine Bilirubin Negative Urine Urobilinogen 0.2 Ur Leukocyte Esterase Negative Urine RBC 0-2 Urine WBC 0-2 Ur Squamous Epith Cells None Urine Bacteria None
[2024-03-31] MEDS: ERTAPENEM 1 GM in 0.9 % SODIUM CHLORIDE Mini-bag 100 ML IVPB (13:14)
[2024-03-31] MEDS: IBUPROFEN 200 MG TABLET PO (16:43)
--- NOTE | 2024-03-31 19:29 | PC.NURSE ---
Pt up independently. Denies need for medication management for left flank pain 0-04/14. Ibuprofen given for headache with relief. Tolerating clear liquid diet with no complaint of increased pain or nausea.
[2024-04-01 03:00] VITALS: BP 114/79; PULSE 74; RESP 16; TEMP 36.5; O2SAT 97
--- NOTE | 2024-04-01 03:58 | PC.NURSE ---
Pt alert, oriented and vitally stable. Pt states slight pain with movement, though tolerable. Pt up independently. Pt in bed, appears to be resting, call light within reach. ?
[2024-04-01 06:29] LABS: Basophils Absolute Auto 0.03 K/uL (0.00-0.30); Basophils Percent Auto 0.3 % (0.0-3.0); Eosinophils Absolute Auto 0.55 K/uL (0.00-0.50); Eosinophils Percent Auto 6.3 % (0.0-7.0); Hematocrit 40.5 % (37.0-53.0); Immature Granulocytes Abs Auto 0.02 K/uL (0.00-0.30); Immature Granulocytes Pct Auto 0.2 %; Lymphocytes Absolute Auto 2.32 K/uL (0.90-2.90); Lymphocytes Percent Auto 26.5 % (20-44); Mean Corpuscular HGB Conc 32 gm/dL (32-36); Mean Corpuscular Hemoglobin 28 pg (26-34); Mean Corpuscular Volume 87 fL (80-100); Monocytes Percent Auto 9.8 % (0.0-11.0); Neutrophils Absolute Auto 4.97 K/uL (1.7-7.0); Neutrophils Percent Auto 56.9 % (42.0-72.0); Platelet Count* 275 K/uL (140-440); RDW Coefficient of Variation % 12.9 % (11.5-15.5); Red Blood Count 4.64 m/uL (4.30-5.90); White Blood Count* 8.75 K/uL (4.50-11.00)
[2024-04-01 06:30] VITALS: BP 127/80; PULSE 72; RESP 16; TEMP 36.6; O2SAT 96
[2024-04-01 06:31] LABS: Slide Review Reflex No
[2024-04-01 06:40] LABS: Chloride* 103 mmol/L (96-114); Sodium* 137 mmol/L (135-149)
[2024-04-01 06:41] LABS: Potassium* 4.3 mmol/L (3.6-5.1)
[2024-04-01 06:43] LABS: Anion Gap 4 mEq/L (7-15); Blood Urea Nitrogen* 9 mg/dL (5-24); Carbon Dioxide* 30 mmol/L (20-32); Creatinine* 0.8 mg/dL (0.5-1.5); Est. Creatinine Clearance* 110.17; Estimated Glomerular Filt Rate 112 ml/min
[2024-04-01 06:44] LABS: Calcium* 8.7 mg/dL (8.4-10.6); Glucose* 97 mg/dL (60-115)
--- NOTE | 2024-04-01 09:38 | PM.GSPN ---
Subjective Subjective Date Seen: 04/01/24 Interval history: Cale is feeling better today. Denies significant pain. States that he only has pain if he twists a certain way. Tolerating a clear diet. Continues to pass gas. Exam Narrative: Exam Narrative: General: No acute distress Abdomen: Nontender. Const: Vital Signs, click to edit/add: Vital Signs - 24 hr 03/31/24 11:00 03/31/24 17:00 03/31/24 19:00 Temperature 98.3 F 98.6 F Pulse Rate [Pulse Oximeter] 89 98 75 Respiratory Rate 16 16 16 Blood Pressure [Le ft Arm] 143/99 H 148/116 H 132/90 H Pulse Oximetry 97 96 95 Oxygen Delivery Me thod Room Air Room Air Room Air 03/31/24 23:00 03/31/24 23:00 04/01/24 03:00 Temperature 97.7 F Pulse Rate [Pulse Oximeter] 75 74 Respiratory Rate 16 14 16 Blood Pressure [Le ft Arm] 114/79 Pulse Oximetry 97 Oxygen Delivery Me thod Room Air 04/01/24 06:30 Temperature 97.9 F Pulse Rate [Pulse Oximeter] 72 Respiratory Rate 16 Blood Pressure [Le ft Arm] 127/80 Pulse Oximetry 96 Oxygen Delivery Me thod Room Air Labs/Imaging Labs Labs: White blood cell count today is normal. Progress Note:A&P Assessment and plan (1) Diverticulitis of colon with perforation: Status: Acute Plan The patient is a 44-year-old male with acute diverticulitis with micro perforation. Today he is clinically improved. We discussed a bland diet while he is recovering and discharge home on oral antibiotics. May follow up with his primary care provider. If he were to develop worsening symptoms then he should call or return to be seen sooner. Recommend colonoscopy in 6-8 weeks.
[2024-04-01 10:26] VITALS: BP 144/87; PULSE 77; RESP 16; TEMP 37.1; O2SAT 95
[2024-04-01] MEDS: SODIUM CHLORIDE 0.9 % (FLUSH) 10 ML SYRINGE 5 ML IVF (10:28)
[2024-04-01] MEDS: ERTAPENEM 1 GM in 0.9 % SODIUM CHLORIDE Mini-bag 100 ML IVPB (13:10)
--- NOTE | 2024-04-01 13:45 | NUTR.NU ---
Nutrition: Patient was provided diet education related to diverticulitis.?Education provided on following a low fiber diet for the next 4 weeks or per MD recommendation.? Education also provided on gradually increasing fiber and following a high fiber diet (25-35 grams/day) long-term.? Verbal and written information as well as sample menus provided from [facility].? Patient verbalized understanding.? RDN's contact information was provided and patient was encouraged to contact RDN with questions.
--- NOTE | 2024-04-01 14:44 | PC.NURSE ---
End of shift [id number]: AxOx4, pleasant, and cooperative to cares. Pt using bathroom independently. VSS on RA. Pt advanced to low fiber/surgical soft diet, tolerating well. Minimal pain reported with activity, Pt tolerating. Pt appears playing on ipad with call light in reach.
[2024-04-01 15:00] VITALS: BP 124/81; PULSE 90; RESP 16; TEMP 36.6; O2SAT 97
--- NOTE | 2024-04-01 16:43 | P.DS_ITS ---
DS: Providers Provider Date Seen: 04/01/24 Date of admission: 03/30/24 19:26 Primary care physician: Urbano Hayes MD Admitting Clinician: Karsten Le MD Consults: 03/30/24 19:23 Consult to Physician [CONS] Urgent Comment: Consulting Provider: Whit Castro Has provider been notified: Yes Attending Physician on discharge: Lonnie Hernandez MD Date of Discharge: 04/01/24 DS: Diagnosis Discharge Diagnosis (1) Diverticulitis of colon with perforation: Status: Acute Problem details: - CT scan of abdomen and pelvis on 03/30/2024: FINDINGS: Lower chest: Scattered atelectasis. Punctate left lower lobe pulmonary nodule. Tiny hiatal hernia. Liver: Normal in size and attenuation. No suspicious masses. Gallbladder and bile ducts: No stones or inflammation. No biliary dilatation. Pancreas: Unremarkable. No mass or inflammation. Spleen: Normal in size. No masses. Adrenal glands: Normal in size. No nodules. Kidneys: Normal in size. No suspicious masses, stones, or hydronephrosis. GI tract: Moderate colonic stool burden. Colonic diverticulosis. Focal acute descending colonic diverticulitis. Possible tiny localized perforation (series 2/image 79). No bowel obstruction. Normal appendix. Vasculature: Abdominal aorta is normal in caliber. Lymph nodes: No lymphadenopathy. Peritoneum/Abdominal Wall: Unremarkable. No sign of mass or infiltration. No free air or significant free fluid. Pelvis: Mildly distended bladder with circumferential wall thickening. Recommend correlation with urinalysis if UTI is suspected. No pelvic masses. Bones: Unremarkable for age. IMPRESSION: Acute descending sigmoid diverticulitis with tiny localized perforation. Otherwise, no complicating features, including free intraperitoneal air or drainable fluid collections. No obstructive uropathy. Mildly distended bladder with circumferential wall thickening. Recommend correlation with urinalysis if UTI is suspected. -continue with ertapenem 1 g IV Q 24 hours, clear liquids orally at this time only with other symptom management -general surgery consultation, Dr. Castro, obtained. -Discharge home on oral antibiotic for 10 days, f/u with PCP in 5-10 days, colonoscopy in 6-[address] Castro DS: Summary Hospital Course Hospital Course: Admission history of present illness: ?44 year old previously healthy male presents with a 1 day history of abdominal pain. He reported bilateral abdominal pain yesterday but it migrated to the left and has persisted on the left side of his abdomen as a constant dull aching pain with episodes of sharp pain that come randomly or with movement. He had fever chills last night and documented fever in the emergency department today. He has had no nausea or vomiting. He was able to eat today. He has had no urinary symptoms. He had a normal bowel movement this morning. He reports no previous history of abdominal problems, gastrointestinal problems or bowel problems. No family history of bowel problems or diverticulitis or colon polyps or colon cancer. He has not previously had colonoscopy.? Responded well to treatment interventions such that on date of discharge no longer had abdominal discomfort. Tolerated soft diet. Status at Discharge Functional status at discharge: independent ambulation Overall status at discharge: patient is progressing back to baseline Time Spent with Patient Time attestation: Total time spent providing and/or coordinating discharge services: Time spent: Less than 30 minutes Exam Narrative: Exam Narrative: Examined patient in his hospital room. Appears comfortable in no acute distress lying in his hospital bed. Alert and oriented x4. Friendly and cooperative. Vision and hearing are adequate. Lungs are clear to auscultation without wheezing, rhonchi, rales. Heart tones with regular rhythm, normal S1-S2, without murmur, gallop, or rub. Abdomen with active bowel sounds, soft. No more subjective discomfort to palpation over the left lower quadrant of the abdomen. No rebound or guarding. Independent in transfer, station, and gait. No focal motor neurologic deficits. Skin warm, dry, intact. Const: Vital Signs, click to edit/add: Vital Signs - 24 hr 03/31/24 17:00 03/31/24 19:00 03/31/24 23:00 Temperature 98.6 F Pulse Rate [Pulse Oximeter] 98 75 75 Respiratory Rate 16 16 16 Blood Pressure [Le ft Arm] 148/116 H 132/90 H Pulse Oximetry 96 95 Oxygen Delivery Me thod Room Air Room Air 03/31/24 23:00 04/01/24 03:00 04/01/24 06:30 Temperature 97.7 F 97.9 F Pulse Rate [Pulse Oximeter] 74 72 Respiratory Rate 14 16 16 Blood Pressure [Le ft Arm] 114/79 127/80 Pulse Oximetry 97 96 Oxygen Delivery Me thod Room Air Room Air 04/01/24 10:26 Temperature 98.8 F Pulse Rate [Pulse Oximeter] 77 Respiratory Rate 16 Blood Pressure [Le ft Arm] 144/87 H Pulse Oximetry 95 Oxygen Delivery Me thod Room Air DS: Data Data Completed and Pending Labs on day of discharge: Labs from last 24 hours 04/01/24 05:58 WBC 8.75 RBC 4.64 Hgb 13.0 L Hct 40.5 MCV 87 MCH 28 MCHC 32 RDW Coeff of Tom 12.9 Plt Count 275 Neut % (Auto) 56.9 Lymph % (Auto) 26.5 [place] % (Auto) 9.8 Eos % (Auto) 6.3 Baso % (Auto) 0.3 Neut # (Auto) 4.97 Lymph # (Auto) 2.32 [place] # (Auto) 0.90 Eos # (Auto) 0.55 H Baso # (Auto) 0.03 Abs Immat Gran (auto) 0.02 Imm/Tot Granulo (auto) 0.2 Sodium 137 Potassium 4.3 Chloride 103 Carbon Dioxide 30 Anion Gap 4 L BUN 9 Creatinine 0.8 Estimated Creat Clear 110.17 Estimated GFR 112 Glucose [address] scan of abdomen and pelvis: Radiologist's impression: FINDINGS: Lower chest: Scattered atelectasis. Punctate left lower lobe pulmonary nodule. Tiny hiatal hernia. Liver: Normal in size and attenuation. No suspicious masses. Gallbladder and bile ducts: No stones or inflammation. No biliary dilatation. Pancreas: Unremarkable. No mass or inflammation. Spleen: Normal in size. No masses. Adrenal glands: Normal in size. No nodules. Kidneys: Normal in size. No suspicious masses, stones, or hydronephrosis. GI tract: Moderate colonic stool burden. Colonic diverticulosis. Focal acute descending colonic diverticulitis. Possible tiny localized perforation (series 2/image 79). No bowel obstruction. Normal appendix. Vasculature: Abdominal aorta is normal in caliber. Lymph nodes: No lymphadenopathy. Peritoneum/Abdominal Wall: Unremarkable. No sign of mass or infiltration. No free air or significant free fluid. Pelvis: Mildly distended bladder with circumferential wall thickening. Recommend correlation with urinalysis if UTI is suspected. No pelvic masses. Bones: Unremarkable for age. IMPRESSION: Acute descending sigmoid diverticulitis with tiny localized perforation. Otherwise, no complicating features, including free intraperitoneal air or drainable fluid collections. Discharge Plan Discharge Disposition: Home, Self-Care Date of Admission: 03/30/24 19:26 Attending Provider on Discharge: Lonnie Hernandez Consulting Providers: Whit Castro Primary Care Provider: Urbano Hayes Condition: Improved Anticipated Discharge Date/Time: 04/01/24 17:30 Discharge Medications: New amoxicillin-pot clavulanate 875-125 mg tablet 1 tab PO BID 10 Days Qty: 20 0RF acetaminophen 325 mg tablet 650 mg PO Q4H PRNQty: 100 0RF oxycodone 5 mg tablet 2.5 mg PO TID PRN (Reason: pain) Qty: 7 0RF Discharge Orders: Discharge Order (Routine); Ordered 04/01/24 Ordered By: Lonnie Hernandez Patient Education: Acetaminophen (By mouth), Amoxicillin/Clavulanate Potassium (By mouth), Oxycodone, Rapid Release (By mouth), Diverticulitis (DC) Additional Instructions: 1. Follow- up with Dr. Hayes in 5-10 days; 2. Colonoscopy with Dr. Castro in 6-8 weeks; 3. Return to clinic or hospital sooner if needed Activity Level: No Restrictions and Activity as Tolerated Discharge Diet: Low Fiber Diet Detail: If tolerating low fiber diet for 7 days, then may transition to your regular diet for another week, then over course of 3-4 weeks transition to high fiber diet Follow Up Appointments: Urbano Hayes MD [Primary Care Provider] - Forms: [facility] Info Instructions
--- NOTE | 2024-04-01 19:32 | PC.NURSE ---
Discharge Summary: Patient pleasant and cooperative. Afebrile. Denies pain. Tolerating low fiber/surgical soft diet with no nausea. Bowel sounds active and passing flatus. Up independently in room. Patient discharged home at 1730 with all personal belongings. Discharge instructions including diagnosis, medications and follow up plan discussed with patient and voiced understanding.
== END 2024-04-01 17:30 | disposition home or self-care (01) | DRG 244 ==
LOC: ED 18:35 → MEDSURG 19:25
PROVIDERS: Internal Medicine; Admitting Provider Family Medicine; Emergency Provider Emergency Medicine; PCP Family Medicine; Visit Provider Family Medicine
DX: K57.20 Diverticulitis of large intestine with perforation and abscess without bleeding (principal); J98.11 Atelectasis; R91.1 Solitary pulmonary nodule; N32.89 Other specified disorders of bladder; I10 Essential (primary) hypertension; F90.9 Attention-deficit hyperactivity disorder, unspecified type
CPT/HCPCS: 36415; 74176; 80048; 81001; 83690; 85025; 99284; 99285; A9270; J1335; J7030

== ENCOUNTER 2024-05-19 09:32 | Outpatient (CLI) | payer BC, SELFPAY ==
--- NOTE | 2024-05-19 10:50 | P.ANES_ITS ---
Anesthesia Charges Start Date/Time Anesthesia Start Date: 05/19/24 Anesthesia Start Time: 10:25 Stop Date/Time Anesthesia Stop Date: 05/19/24 Anesthesia Stop Time: 10:49 Coding CPT Codes CPT Codes: VIPUL LWR INTST SCR COLSC - 08349 ([id number]) P1 - NORMAL HEALTHY PATIENT, QK - SAFETY LEAD 2-4 CNCRNT ANES PROC, QX - JAVA SOFTWARE DEVELOPER SVC W/ MED DIRECTION
--- NOTE | 2024-05-19 10:50 | W.ANESCHARGE ---
Anesthesia Charges Start Date/Time Anesthesia Start Date: 05/19/24 Anesthesia Start Time: 10:25 Stop Date/Time Anesthesia Stop Date: 05/19/24 Anesthesia Stop Time: 10:49 Coding CPT Codes CPT Codes: VIPUL LWR INTST SCR COLSC - 48718 ([id number]) P1 - NORMAL HEALTHY PATIENT, QK - ENVIRONMENTAL SERVICES ASSISTANT 2-4 CNCRNT ANES PROC, QX - DATA MANAGEMENT CONSULTANT SVC W/ MED DIRECTION
--- NOTE | 2024-05-19 10:50 | W.ANESCHARGE ---
Anesthesia Charges Start Date/Time Anesthesia Start Date: 05/19/24 Anesthesia Start Time: 10:25 Stop Date/Time Anesthesia Stop Date: 05/19/24 Anesthesia Stop Time: 10:49 Coding CPT Codes CPT Codes: ANES LWR INTST SCR COLSC - 31710 ([id number]) P1 - NORMAL HEALTHY PATIENT
== END 2024-05-19 09:33 | disposition home or self-care (01) ==
LOC: OP CLINIC 09:33
PROVIDERS: PCP Family Medicine; Visit Provider Surgery
DX: K57.32 Diverticulitis of large intestine without perforation or abscess without bleeding (principal); D12.8 Benign neoplasm of rectum; K57.30 Diverticulosis of large intestine without perforation or abscess without bleeding
CPT/HCPCS: 00812; 45385; 88305; J2704